=== PATIENT | female | born 1970 | race Caucasian/White ===

== ENCOUNTER 2020-04-25 05:42 | Day surgery (SDC) | payer BC, OTHER ==
[2020-04-25] MEDS ORDERED: DEXAMETHASONE INJ 10 MG/ML VIAL IV ONE (05:43)
[2020-04-25] MEDS ORDERED: MAGNESIUM SULFATE INJ 1 GM/2 ML VIAL IVPB ONE (05:43)
[2020-04-25] MEDS ORDERED: LIDOCAINE 1% 10 ML VIAL INJ ONE (05:43)
[2020-04-25] MEDS ORDERED: PROPOFOL 200 MG/20 ML VIAL IV ONE (05:43)
[2020-04-25] MEDS ORDERED: LACTATED RINGERS 1,000 ML ONE (06:32)
[2020-04-25] MEDS ORDERED: MIDAZOLAM SYRUP 2 MG/ML (10ML) UD ONE (09:46)
[2020-04-25] MEDS ORDERED: BUPIVACAINE 0.5% W/EPI 30 ML VIAL INJ ONE (09:52)
[2020-04-25] MEDS ORDERED: SUGAMMADEX SODIUM 200 MG/2 ML VIAL IV ONE (10:36)
[2020-04-25] MEDS ORDERED: KETAMINE HCL 100 MG/ML VIAL ONE (10:36)
[2020-04-25] MEDS ORDERED: ROCURONIUM BROMIDE 10 MG/ML VIAL ONE (10:37)
[2020-04-25] MEDS ORDERED: FAMOTIDINE INJ 10 MG/ML VIAL IV ONE (10:37)
[2020-04-25] MEDS ORDERED: HYDROmorphone HCL INJ 2 MG/ML VIAL ONE (10:37)
[2020-04-25] MEDS ORDERED: LABETALOL INJ 5 MG/ML VIAL ONE (12:11)
[2020-04-25] MEDS ORDERED: hydrOXYzine HCl 25 MG TAB ONE (13:03)
[2020-04-25] MEDS ORDERED: hydrOXYzine HCl 25 MG TAB PO ONE (13:05)
--- NOTE | 2020-04-25 13:06 | OP ---
DATE OF PROCEDURE: 04/25/20 PREOPERATIVE DIAGNOSIS: 1. Symptomatic cholelithiasis. POSTOPERATIVE DIAGNOSIS: 1. Symptomatic cholelithiasis. PROCEDURE: 1. Laparoscopic cholecystectomy with intraoperative cholangiogram. SURGEON: Ken Jang MD. ANESTHESIA: General and local. FINDINGS: Cholangiogram revealed normal anatomy throughout without filling defect. COMPLICATIONS: None. ESTIMATED BLOOD LOSS: Minimal. SPECIMEN: Gallbladder. CONDITION: Stable. PLAN: Discharge. INDICATION: As stated. PROCEDURE: General anesthesia was induced. The patient was prepped and draped in sterile fashion. Marcaine 0.5% with epinephrine was used at all incision sites. While maintaining upward traction, a jose was made near the base of the umbilicus. Veress needle was introduced. There was free flow of fluid into the peritoneal cavity which was insufflated to an appropriate level with CO2 gas. The 5 mm trocar was placed followed by the camera. There was no evidence of bleeding or bowel injury. The patient was positioned and subxiphoid and lateral ports were placed under direct visualization without difficulty. The gallbladder fundus was easily identified. It was grasped and retracted superiorly and laterally. The infundibulum was grasped. The infundibular structures were dissected free. The duct and artery were clearly visualized through the triangle of Calot. A clip was placed on the proximal duct and ductotomy performed. Cholangiocatheter was introduced. The cholangiogram revealed the above normal findings. The catheter was removed. Three clips were placed on the distal duct. The duct was ligated and the artery triply ligated. The gallbladder was then dissected off the fossa in toto and removed in the EndoCatch bag. The fossa was examined. It remained hemostatic. The clips were intact. There was no bleeding or bile leakage. The subxiphoid fascia was then closed with 0 Vicryl using the suture passer. It was airtight and non-bleeding. The remaining trocars were removed. There was no bleeding from the trocar sites. The wounds were irrigated and closed with Monocryl. Dressings were applied. The patient was awakened and taken to Recovery in stable condition to be discharged. #[id number] cc: MATHEW Cisneros
[2020-04-25 13:22] VITALS: TEMP 96.8
[2020-04-25] MEDS ORDERED: PROMETHAZINE HCL INJ 25 MG/ML VIAL ONE (13:40)
[2020-04-25] MEDS ORDERED: SODIUM CHLORIDE 0.9% 100ML 100 ML IVPB ONE (13:41)
[2020-04-25] MEDS ORDERED: PROMETHAZINE HCL INJ 25 MG/ML VIAL IVPB ONE (13:45)
[2020-04-25 15:16] VITALS: BP 144/102; O2SAT 95
--- NOTE | 2020-04-26 18:30 | RAD ---
EXAM DESCRIPTION: Fluoroscopy Up to 1Hr CLINICAL HISTORY: 49 years Female, IOC COMPARISON: None. TECHNIQUE: Fluoroscopic images from an intraoperative cholangiogram. Fluoroscopy time: 8.4 seconds Fluoroscopic images: 1 Total dose: 1.21 mGy IMPRESSION: Intraprocedural fluoroscopic images saved for the benefit of the surgeon. Cannulation of the cystic duct with opacification of the biliary tree. Nondilated common bile duct and without persistent filling defect or stricture. The pancreatic duct is not visualized. Please refer to procedural report for full details. Electronically signed by: Ace Menchaca MD 04/26/2020 6:29 PM CDT
== END 2020-04-25 15:15 | disposition home or self-care (01) ==
LOC: AMB 05:42
PROVIDERS: ATTEND Surgery
DX: K80.10 Calculus of gallbladder with chronic cholecystitis without obstruction (principal); I10 Essential (primary) hypertension; K59.00 Constipation, unspecified; G25.81 Restless legs syndrome; E06.3 Autoimmune thyroiditis; Z88.1 Allergy status to other antibiotic agents; Z88.2 Allergy status to sulfonamides; Z88.8 Allergy status to other drugs, medicaments and biological substances; Z79.899 Other long term (current) drug therapy
CPT/HCPCS: 00790; 47563; 76000; 81025; J1100; J1170; J2550; J3475; J3490; J7050; J7120

== ENCOUNTER → 2020-05-26 | Outpatient (CLI) | payer OTHER | LOC: GMAE 16:49 | PROVIDERS: ATTEND Family Medicine | DX: N93.9 Abnormal uterine and vaginal bleeding, unspecified (principal) ==

== ENCOUNTER → 2020-08-19 | Outpatient (CLI) | payer OTHER | LOC: GMA 11:58 | PROVIDERS: ATTEND Nurse Practitioner Family | DX: G25.81 Restless legs syndrome (principal); Z13.220 Encounter for screening for lipoid disorders; E03.9 Hypothyroidism, unspecified ==

== ENCOUNTER → 2020-09-02 | Outpatient (CLI) | payer OTHER | LOC: GMAV 10:24 | PROVIDERS: ATTEND Nurse Practitioner Family | DX: D64.9 Anemia, unspecified (principal) ==